=== PATIENT | male | born 1960 | race Caucasian/White ===

== ENCOUNTER 2023-09-29 10:12 | Emergency (ER) | payer BC ==
[2023-09-29] MEDS: Lidocaine 1% 10 ML MDV INJECT ONE (10:44)
== END 2023-09-29 11:10 | disposition home or self-care (01) ==
LOC: VM.ED 10:12
DX: S01.81XA Laceration without foreign body of other part of head, initial encounter (principal); W22.8XXA Striking against or struck by other objects, initial encounter; Y93.89 Activity, other specified; Y99.0 Civilian activity done for income or pay; Y92.73 Farm field as the place of occurrence of the external cause
CPT/HCPCS: 12011; 99282; J3490